=== PATIENT | male | born 1940 | race Caucasian/White ===

== ENCOUNTER 2018-10-10 10:17 | Outpatient (CLI) | payer OTHER, SELFPAY ==
[2018-10-10 15:47] LABS: Bacteria Negative HPF (Negative); C & S Indicated? No; Crystals Negative HPF (Negative); Epithelial Cells Negative HPF (Negative); Mucus Negative (Negative); Other Cells Negative (Negative); RBC 0-2 (0-2); WBC 0-2 HPF (0-5)
[2018-10-12 10:20] LABS: PSA, Screening 5.2 ng/ml (0-6.5)
== END 2018-10-10 10:37 ==
PROVIDERS: PCP Family Medicine; Visit Provider Nurse Practitioner Gerontology
DX: R31.9 Hematuria, unspecified (principal); N40.0 Benign prostatic hyperplasia without lower urinary tract symptoms; R97.20 Elevated prostate specific antigen [PSA]; Z12.5 Encounter for screening for malignant neoplasm of prostate
CPT/HCPCS: 36415; 84153; 81015

== ENCOUNTER → 2018-10-18 13:42 | Outpatient (BNVA) | payer OTHER, SELFPAY | PROVIDERS: PCP Family Medicine; Visit Provider Nurse Practitioner Gerontology | DX: N40.1 Benign prostatic hyperplasia with lower urinary tract symptoms (principal); R35.0 Frequency of micturition; R31.29 Other microscopic hematuria; R97.20 Elevated prostate specific antigen [PSA] | CPT/HCPCS: 99213 ==

== ENCOUNTER 2019-01-05 14:01 | Outpatient (CLI) | payer OTHER, SELFPAY ==
--- NOTE | 2019-01-05 14:00 | DI.RAD_ITS ---
SYMPTOMS/DIAGNOSIS: COUGH, SHORTNESS OF BREATH, SMOKER PA AND LATERAL CHEST: The heart is not enlarged. There appear to be changes of COPD but the lungs are clear. No pleural effusion seen. CONCLUSION: No evidence of acute disease.
[2019-01-05 14:51] LABS: Abs Immature Grans 0.01 k/cumm (0.0-0.09); Absolute Basophil Count 0.04 k/cumm (0.0-0.2); Absolute Eosinophil Count 0.05 k/cumm (0.0-0.7); Absolute Lymphocyte Count 1.36 k/cumm (1.2-3.4); Absolute Monocyte Count 0.55 k/cumm (0.11-0.7); Absolute Neutrophil Count 3.41 k/cumm (1.2-6.7); Basophils % 0.7; Eosinophils % 0.9; HCT 41.7 % (40.0-50.0); Immature Grans % 0.2; Lymphocytes % 25.1; Mean Corp. HGB Concentration 33.6 g/dL (32.0-36.0); Mean Corpuscular Hemoglobin 30.3 pg (27.0-33.0); Mean Corpuscular Volume 90.3 fL (80-95); Mean Platelet Volume 8.9 fL (8.0-11.0); Monocytes % 10.1; Platelet Count 223 x1000/uL (130-400); RBC 4.62 m/cumm (4.50-6.00); RBC Distribution Width 13.2 % (11.8-14.1); White Blood Cell Count 5.42 k/cumm (4.4-10.8)
[2019-01-05 16:29] LABS: Anion Gap 8.9 mmol/L (3-11); BUN 17 mg/dL (7-18); CO2 29.1 mmol/L (21.0-32.0); CREATININE 1.03 mg/dL (0.70-1.30); Calcium 9.1 mg/dL (8.5-10.1); Chloride 100 mmol/L (98-107); Glucose 100 mg/dL (70-100); Sodium 138 mmol/L (136-145)
== END 2019-01-05 14:21 ==
PROVIDERS: PCP Family Medicine; Visit Provider Family Medicine
DX: R05 Cough (principal); R06.02 Shortness of breath; F17.210 Nicotine dependence, cigarettes, uncomplicated; J44.9 Chronic obstructive pulmonary disease, unspecified
CPT/HCPCS: 36415; 80048; 71046; 85025

== ENCOUNTER 2019-01-12 08:31 | Outpatient (CLI) | payer OTHER, SELFPAY ==
[2019-01-12 10:46] LABS: TSH (W/Ref FT4) 0.97 uIU/mL (0.358-3.74)
[2019-01-16 07:05] LABS: Lyme Ab w Rflx to Lyme Confirm Negative
== END 2019-01-12 08:51 ==
PROVIDERS: PCP Family Medicine; Visit Provider Family Medicine
DX: R53.82 Chronic fatigue, unspecified (principal)
CPT/HCPCS: 36415; 84443; 86618

== ENCOUNTER 2019-01-25 02:01 | Outpatient (RCR) | payer OTHER, SELFPAY | END 2019-02-23 23:59 | disposition home or self-care (01) | LOC: PRC 02:01 | PROVIDERS: PCP Family Medicine; Visit Provider Family Medicine | DX: J44.9 Chronic obstructive pulmonary disease, unspecified (principal); Z51.89 Encounter for other specified aftercare | CPT/HCPCS: G0424 ==

== ENCOUNTER 2019-02-05 01:30 | Outpatient (CLI) | payer OTHER, SELFPAY ==
[2019-02-05 09:06] VITALS: PULSE 115; PULSE 120; PULSE 93; O2SAT 89; O2SAT 96
[2019-02-12 14:50] VITALS: PULSE 105; PULSE 106; PULSE 97; RESP 18; RESP 20; RESP 24; RESP 26; O2SAT 88; O2SAT 91; O2SAT 94
== END 2019-02-05 01:50 ==
PROVIDERS: PCP Family Medicine; Visit Provider Family Medicine
DX: R06.02 Shortness of breath (principal); J44.9 Chronic obstructive pulmonary disease, unspecified
CPT/HCPCS: 94618

== ENCOUNTER 2019-02-25 04:51 | Outpatient (RCR) | payer OTHER, SELFPAY | END 2019-03-25 23:59 | disposition home or self-care (01) | LOC: PRC 04:51 | PROVIDERS: PCP Family Medicine; Visit Provider Family Medicine | DX: J44.9 Chronic obstructive pulmonary disease, unspecified (principal); Z51.89 Encounter for other specified aftercare | CPT/HCPCS: G0424 ==

== ENCOUNTER 2019-03-26 09:23 | Outpatient (RCR) | payer OTHER, SELFPAY | END 2019-04-25 23:59 | disposition home or self-care (01) | LOC: PRC 09:23 | PROVIDERS: PCP Family Medicine; Visit Provider Family Medicine | DX: J44.9 Chronic obstructive pulmonary disease, unspecified (principal); Z51.89 Encounter for other specified aftercare | CPT/HCPCS: G0424 ==

== ENCOUNTER 2019-05-02 00:59 | Outpatient (CLI) | payer OTHER, SELFPAY ==
--- NOTE | 2019-05-02 15:20 | DI.CTLCSR_ITS ---
SYMPTOM/DIAGNOSIS: Z87.[address] LOW DOSE LUNG CANCER SCREENING: CHEST CT LOW DOSE LUNG CANCER SCREENING PROTOCOL 05/02 CT examination of the chest was performed utilizing low dose lung cancer screening protocol. Images obtained through the upper abdomen show unremarkable appearance of visualized portions of liver, pancreas, adrenals and kidneys. There are a few splenic calcifications which are nonspecific. Tiny calcified pulmonary nodule is seen posteriorly in the right lower lobe. No noncalcified pulmonary nodule is seen. No consolidation. A few apparent linear scars are noted. 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 No mediastinal or hilar adenopathy seen. Tracheobronchial tree appears intact. No pleural effusion or pleural base mass. CONCLUSION: Severe central lobular emphysema. Negative LDCT, Category 1. Continue annual screening with LDCT in 12 months. Lung-RAD Category: Lung RADS Category 1- Negative
== END 2019-05-02 01:19 ==
PROVIDERS: PCP Family Medicine; Visit Provider Internal Medicine
DX: Z12.2 Encounter for screening for malignant neoplasm of respiratory organs (principal); Z87.891 Personal history of nicotine dependence; R91.8 Other nonspecific abnormal finding of lung field; J43.9 Emphysema, unspecified
CPT/HCPCS: G0297

== ENCOUNTER 2019-05-25 13:00 | Outpatient (RCR) | payer OTHER, SELFPAY ==
--- NOTE | 2019-05-15 12:00 | PR3E_ITS ---
78 year old male who graduated Pulmonary Rehabilitation Phase 2 for COPD and transitioned to the maintenance phase, 3 days per week. PMH: COPD, GERD, BPH, chronic fatigue, orthopedic issues First day of exercise: 05/14/19: BP at rest 123/74, HR rest 78 bpm, O2 on 2L 96%. Patient completed 32 minutes of exercise: NuStep 8 minutes, UBE 8 minutes, treadmill 8 minutes, bike 8 minutes. O2 w/ exercise ranged 96-98%, HR w/ exercise ranged 94-107 bpm. YE RPB/RPE scores 12-15. BP with exercise 114/75. Post exercise BP 124/71, O2 95%. Tolerated exercise regimen without any adverse signs or symptoms. No concerns at this time, will continue to progress as tolerated.
== END 2019-05-26 23:59 | disposition home or self-care (01) ==
LOC: PRC 13:00
PROVIDERS: PCP Family Medicine; Visit Provider Family Medicine
DX: J44.9 Chronic obstructive pulmonary disease, unspecified (principal); Z51.89 Encounter for other specified aftercare
CPT/HCPCS: G0424

== ENCOUNTER 2019-06-08 08:55 | Emergency (ER) | payer OTHER, SELFPAY ==
--- NOTE | 2019-06-08 09:05 | ED.GENADUL_ITS ---
Discharge Plan Disposition Patient Disposition: HOME Condition: Stable Discharge Details Chief Complaint: Urinary Clinical Impression: Acute urinary retention Primary Care Provider: Mike Wing ED Provider: Aftab Spencer Home Meds and New Rx's Prescriptions: Continued Stiolto Respimat 2.5-2.5 mcg/actuation mist 2 puff IH DAILY RF: 0 (DME) Oxygen Tank See Rx Instructions .ROUTE .MEDSUPPLY Qty: 1 RF: 0 Prevnar 13 (PF) 0.5 mL syringe 0.5 ml IM ONCE Qty: 0.5 RF: 0 aspirin [Aspir-81] 81 MG tablet,delayed release (DR/EC) 81 mg PO DAILY Qty: 30 RF: 11 tamsulosin 0.4 mg capsule 0.8 mg PO DAILY AM Qty: 180 RF: 3 Symbicort 80-4.5 mcg/actuation HFA aerosol inhaler 2 puff Inhalation BID Qty: 120 RF: 5 albuterol sulfate [Proventil HFA] 90 mcg/actuation HFA aerosol inhaler 2 puff IH Q6H PRN (Reason: shortness of breath or wheezing) Qty: 8.5 RF: 11 Prilosec OTC 20 MG tablet,delayed release (DR/EC) 20 mg PO DAILY@0730 RF: 0 Discharge Instructions Instructions: Santacruz Catheter Placement and Care (ED), Urinary Leg Bag (GEN) Additional Instructions: follow up with urology for a voiding trial if you develop severe pain, fevers or persistent vomit return to the emergency department Medical Decision Making 78 yo male with hx of bph on flomax comes in with difficulty urinating for 2 days without fevers or burning. Denies n/v, abdominal pain or vomit. Has never required a santacruz in the past. Is walking without issues without back pain or saddle anesthesia so doubt cauda equina. Will have nursing perform bladder scan pt has over 600cc urine in bladder and can't urinate it out, nursing will place santacruz and he consents to this. Will check UA as well pt remains stable and feels better after santacruz placed. Draining clear urine and ua unremarkable. He is already established with urology so will have him f/u with them and return precautions given Differential Diagnosis Differential Diagnosis: bph, uti Medical Records Medical records reviewed: Yes I reviewed the patient's medical records. Lab Data Lab results reviewed: Yes I reviewed the patient's lab results. HPI General Mode of arrival: ambulatory . Date/Time Provider Initiated Documentation: 06/08/19 08:56 . Limitations to Documentation: no limitations . Information obtained by: patient . History of Present Illness 78 year old M presents to the emergency department with the chief complaint of difficulty urinating, Patient started experiencing this day(s) (2) and it has been constant. No relieving factors improve symptom(s), No exacerbating factors reported . Patient notes no other symptoms.. Related Data Home Medications Medication Instructions Recorded Confirmed Prilosec OTC 20 mg PO DAILY@0730 06/04/13 06/08/19 aspirin [Aspir-81] 81 mg PO DAILY #30 tab-cap 07/09/15 06/08/19 tamsulosin 0.4 mg capsule 0.8 mg PO DAILY AM #180 tab-cap 10/30/18 06/08/19 budesonide-formoterol HFA 80 2 puff INHALATION BID #120 inhaler 12/28/18 06/08/19 mcg-4.5 mcg/actuation aerosol inhaler albuterol sulfate 90 mcg/actuation 2 puff IH Q6H PRN #8.5 gm 05/02/19 06/08/19 aerosol inhaler Oxygen #1 each 05/16/19 06/08/19 pneumoc 13-sophia conj-dip cr(PF) 0.5 0.5 ml IM ONCE #0.5 ml 05/16/19 06/08/19 mL IM syringe tiotropium 2.5 mcg-olodaterol 2.5 2 puff IH DAILY 05/16/19 06/08/19 mcg/actuation mist for inhalation Previous Rx's Medication Instructions Recorded tamsulosin 0.4 mg capsule 0.8 mg PO DAILY AM #180 tab-cap 10/30/18 budesonide-formoterol HFA 80 2 puff INHALATION BID #120 inhaler 12/28/18 mcg-4.5 mcg/actuation aerosol inhaler albuterol sulfate 90 mcg/actuation 2 puff IH Q6H PRN #8.5 gm 05/02/19 aerosol inhaler pneumoc 13-sophia conj-dip cr(PF) 0.5 0.5 ml IM ONCE #0.5 ml 05/16/19 mL IM syringe Allergies Allergy/AdvReac Type Severity Reaction Status Date / Time No Known Allergies Allergy Unverified 06/08/19 09:11 Review of Systems Review of Systems ROS Unobtainable: All systems reviewed & are unremarkable except as noted in HPI and below Constitutional Constitutional: Denies chills, Denies fever(s) and Denies weakness ENT Ears, Nose, Mouth, and Throat: Denies change in voice Cardiovascular Cardiovascular: Denies chest pain and Denies dyspnea Respiratory Respiratory: Denies cough and Denies dyspnea Gastrointestinal Gastrointestinal: Denies abdominal pain, Denies nausea and Denies vomiting Genitourinary Genitourinary: Denies dysuria Neurologic Neurologic: Denies weakness [facility] Surgical History (Updated 02/14/19 @ 07:42 by Tej Winters) Appendectomy AGE 11 LEFT COLLARBONE AGE 18 Tonsillectomy AGE 13 Vasectomy AGE 44? Family History Mother No problems noted. Father Personal history of malignant neoplasm esophageal Sister No problems noted. Sister Alzheimer disease Sister Personal history of malignant neoplasm Lung Sister No problems noted. Brother Personal history of malignant neoplasm Esophageal Grandfather No problems noted. Grandfather Ruptured appendix Grandmother No problems noted. Grandmother No problems noted. Social History (Updated 11/17/18 @ 10:57 by Armida Guillen LPN) Smoking/Tobacco Use Status: Former Tobacco Use Alcohol Intake: never Drug use: Never Substance use type: does not use Do you feel safe at home: Yes Do you feel safe in your relationship?: Yes Exam Const General: no acute distress Orientation: alert HENMT Head: normal to inspection Ears: external ears normal General nose exam: external nose normal Mouth: moist mucous membranes Eyes General: appearance normal, both eyes and all related structures Neck Neck: normal visual inspection Resp Effort & Inspection: normal respiratory effort and able to speak in complete sentences Cardio Rate: regular rate Skin General skin exam: no rashes or lesions noted Neuro General: alert and oriented x3 Extrem General: normal to inspection Psych Mental Status: mental status grossly normal
[2019-06-08 09:08] VITALS: BP 157/94; PULSE 97; RESP 26; TEMP 36.8; O2SAT 98
[2019-06-08 09:40] LABS: Bilirubin Negative (Negative); Blood Moderate (Negative); Clarity Clear (Clear); Glucose Negative (Negative); Ketones Negative (Negative); Leukocyte Esterase Negative (Negative); Nitrite Negative (Negative); Urobilinogen 0.2 EU/dL (Up TO 0.2); pH 5.5 (5-8)
[2019-06-08 09:50] LABS: Bacteria Rare HPF (Negative); C & S Indicated? C&S Done As Ordered; Casts Negative LPF (Negative); Crystals Negative HPF (Negative); Epithelial Cells Negative HPF (Negative); Mucus Trace (Negative); WBC 0-2 HPF (0-5)
[2019-06-08 10:13] VITALS: BP 137/73; PULSE 97; O2SAT 94
--- NOTE | 2019-06-08 10:41 | NUR.NOTE ---
Referral faxed to [facility].Nursing Note:
== END 2019-06-08 10:15 | disposition home or self-care (01) ==
LOC: ER 10:23
PROVIDERS: Emergency Provider Emergency Medicine; PCP Family Medicine
DX: N40.1 Benign prostatic hyperplasia with lower urinary tract symptoms (principal); R33.8 Other retention of urine
CPT/HCPCS: 51702; 99283; 81003; 81015; 87086

== ENCOUNTER 2019-06-11 06:52 | Emergency (ER) | payer OTHER, SELFPAY ==
[2019-06-11 06:55] VITALS: BP 152/93; PULSE 87; RESP 20; TEMP 37; O2SAT 93
--- NOTE | 2019-06-11 07:06 | ED.GENADUL_ITS ---
Discharge Plan Disposition Patient Disposition: HOME Condition: Good Discharge Details Clinical Impression: Acute urinary retention Primary Care Provider: Mike Wing ED Provider: Pola Morgan Home Meds and New Rx's Prescriptions: No Action Stiolto Respimat 2.5-2.5 mcg/actuation mist 2 puff IH DAILY RF: 0 (DME) Oxygen Tank See Rx Instructions .ROUTE .MEDSUPPLY Qty: 1 RF: 0 Prevnar 13 (PF) 0.5 mL syringe 0.5 ml IM ONCE Qty: 0.5 RF: 0 aspirin [Aspir-81] 81 MG tablet,delayed release (DR/EC) 81 mg PO DAILY Qty: 30 RF: 11 tamsulosin 0.4 mg capsule 0.8 mg PO DAILY AM Qty: 180 RF: 3 Symbicort 80-4.5 mcg/actuation HFA aerosol inhaler 2 puff Inhalation BID Qty: 120 RF: 5 albuterol sulfate [Proventil HFA] 90 mcg/actuation HFA aerosol inhaler 2 puff IH Q6H PRN (Reason: shortness of breath or wheezing) Qty: 8.5 RF: 11 Prilosec OTC 20 MG tablet,delayed release (DR/EC) 20 mg PO DAILY@0730 RF: 0 Discharge Instructions Additional Instructions: Please go directly to Dr. Vail's office where he will reassess and manage your current Rodríguez situation. Medical Decision Making This is a pleasant 78-year-old male with a past medical history of hematuria with a Rodríguez catheter placed 3 days ago secondary to urinary retention . He presents today with inability to pass urine through his Rodríguez catheter. He noticed some clots last night and after that he was unable to pass anymore. Here in the ED he does have mildly distended bladder, we were able to push fluid through the catheter however we are unable to try any back. I suspect obstruction by clot or other abnormality. Since the patient has an appointment in an hour and a half we did contact Dr. Vail's office, and upon review of the case Dr. Vail recommends that the patient, directly to his office where they can replace the Rodríguez with a three-way and irrigate his bladder. Patient will be brought up by nursing staff in wheelchair for definitive management at Dr. Vail's office. I have extensively reviewed the treatment plan and discharge instructions with the patient. I have addressed all patient concerns at this time. The patient was made aware of what symptoms to monitor for that would warrant a return to the emergency department. Discussed the plan with the patient, they demonstrate verbal understanding and agreement with our assessment and plan at this time. HPI General Date/Time Provider Initiated Documentation: 06/11/19 06:57 . HPI Narrative: This is a pleasant 78-year-old male with a past medical history of hematuria who presents today for urinary retention. 3 days ago he had some mild hematuria and subsequent urinary retention with 700 cc of retained urine. At that time he was seen and assessed by Dr. Spencer, Rodríguez catheter was placed and he was doing very well. Unfortunately yesterday evening he noticed again some clots in his urine and after that his Rodríguez catheter would no longer drained. He has not been able to urinate since then. He does admit to some mild pain and pressure in the suprapubic region. He denies any fever chills nausea vomiting or diarrhea. No other complaints at this time. Of note he does have an appointment with Dr. Vail in an hour and a half from the current time. Related Data Home Medications Medication Instructions Recorded Confirmed Prilosec OTC 20 mg PO DAILY@0730 06/04/13 06/08/19 aspirin [Aspir-81] 81 mg PO DAILY #30 tab-cap 07/09/15 06/08/19 tamsulosin 0.4 mg capsule 0.8 mg PO DAILY AM #180 tab-cap 10/30/18 06/08/19 budesonide-formoterol HFA 80 2 puff INHALATION BID #120 inhaler 12/28/18 06/08/19 mcg-4.5 mcg/actuation aerosol inhaler albuterol sulfate 90 mcg/actuation 2 puff IH Q6H PRN #8.5 gm 05/02/19 06/08/19 aerosol inhaler Oxygen #1 each 05/16/19 06/08/19 pneumoc 13-sophia conj-dip cr(PF) 0.5 0.5 ml IM ONCE #0.5 ml 05/16/19 06/08/19 mL IM syringe tiotropium 2.5 mcg-olodaterol 2.5 2 puff IH DAILY 05/16/19 06/08/19 mcg/actuation mist for inhalation Previous Rx's Medication Instructions Recorded tamsulosin 0.4 mg capsule 0.8 mg PO DAILY AM #180 tab-cap 10/30/18 budesonide-formoterol HFA 80 2 puff INHALATION BID #120 inhaler 12/28/18 mcg-4.5 mcg/actuation aerosol inhaler albuterol sulfate 90 mcg/actuation 2 puff IH Q6H PRN #8.5 gm 05/02/19 aerosol inhaler pneumoc 13-sophia conj-dip cr(PF) 0.5 0.5 ml IM ONCE #0.5 ml 05/16/19 mL IM syringe Allergies Allergy/AdvReac Type Severity Reaction Status Date / Time No Known Allergies Allergy Unverified 06/08/19 09:11 General OTILIO: 3 Review of Systems Review of Systems ROS Unobtainable: All systems reviewed & are unremarkable except as noted in HPI and below PFSH Surgical History (Updated 02/14/19 @ 07:42 by Tej Winters) Appendectomy AGE 11 LEFT COLLARBONE AGE 18 Tonsillectomy AGE 13 Vasectomy AGE 44? Family History Mother No problems noted. Father Personal history of malignant neoplasm esophageal Sister No problems noted. Sister Alzheimer disease Sister Personal history of malignant neoplasm Lung Sister No problems noted. Brother Personal history of malignant neoplasm Esophageal Grandfather No problems noted. Grandfather Ruptured appendix Grandmother No problems noted. Grandmother No problems noted. Social History (Updated 11/17/18 @ 10:57 by Armida Guillen LPN) Smoking/Tobacco Use Status: Former Tobacco Use Alcohol Intake: never Drug use: Never Substance use type: does not use Do you feel safe at home: Yes Do you feel safe in your relationship?: Yes Exam Narrative Exam Narrative: 1.Const: Well-nourished, Well-developed, appearing stated age 2.Eyes: PERRL, no conjunctival injection, and symmetrical lids. 3.ENT: Atraumatic external nose and ears. Moist MM. Neck: Symmetric, trachea midline, No thyromegaly. 4.CVS: +S1/S2, No murmurs or gallops. Peripheral pulses 2+ and equal in all extremities. Brisk capillary refill in all extremities. 5.RESP: Unlabored respiratory effort. Clear to auscultation bilaterally. No wheezes rales or rhonchi 6.GI: Soft, Nontender/Nondistended, No hepatosplenomegaly. No guarding or rebound. Normal male genitalia, Rodríguez catheter in place. Nontender testicles and penis. 7.MSK: Normocephalic/Atraumatic, Extremities w/o deformity or ttp No cyanosis or clubbing, Normal movement of all extremities 8.Skin: Warm, Dry. No rashes or lesions. 9.Neuro: rehabilitation attendant II-XII grossly intact. Sensation grossly intact, no focal neurologic deficits. 10.Psych: (AAO) x3. Appropriate mood and affect
== END 2019-06-11 07:14 | disposition home or self-care (01) ==
LOC: ER 07:11
PROVIDERS: Emergency Provider Student in an Organized Health Care Education/Training Program; PCP Family Medicine
DX: N40.1 Benign prostatic hyperplasia with lower urinary tract symptoms (principal); R33.8 Other retention of urine; T83.011A Breakdown (mechanical) of indwelling urethral catheter, initial encounter; Z46.6 Encounter for fitting and adjustment of urinary device; R31.0 Gross hematuria
CPT/HCPCS: 51702; 51798; 99212; 99213; 99282

== ENCOUNTER → 2019-06-12 10:17 | Outpatient (BNVA) | payer OTHER, SELFPAY | PROVIDERS: PCP Family Medicine; Visit Provider Nurse Practitioner Gerontology | DX: R33.9 Retention of urine, unspecified (principal); Z46.6 Encounter for fitting and adjustment of urinary device | CPT/HCPCS: 99213 ==

== ENCOUNTER → 2019-06-14 07:32 | Outpatient (BNVA) | payer OTHER, SELFPAY | PROVIDERS: PCP Family Medicine; Visit Provider Urology | DX: R33.9 Retention of urine, unspecified (principal) | CPT/HCPCS: 51798; 99211; 99213 ==

== ENCOUNTER 2019-06-18 14:00 | Outpatient (CLI) | payer OTHER, SELFPAY | END 2019-06-18 14:20 | PROVIDERS: PCP Family Medicine; Visit Provider Nurse Practitioner Gerontology | DX: R33.9 Retention of urine, unspecified (principal) | CPT/HCPCS: 51798; 99212 ==

== ENCOUNTER 2019-06-20 13:00 | Outpatient (RCR) | payer SELFPAY | END 2019-06-25 23:59 | disposition home or self-care (01) | LOC: PRC 13:00 | PROVIDERS: PCP Family Medicine; Visit Provider Family Medicine | DX: J44.9 Chronic obstructive pulmonary disease, unspecified (principal); Z51.89 Encounter for other specified aftercare | CPT/HCPCS: 99212; S9472 ==

== ENCOUNTER 2019-06-26 06:26 | Outpatient (RCR) | payer SELFPAY | END 2019-07-26 23:59 | disposition home or self-care (01) | LOC: PRC 06:26 | PROVIDERS: PCP Family Medicine; Visit Provider Family Medicine | DX: J44.9 Chronic obstructive pulmonary disease, unspecified (principal); Z51.89 Encounter for other specified aftercare | CPT/HCPCS: S9472 ==

== ENCOUNTER 2019-07-25 13:30 | Outpatient (RCR) | payer SELFPAY | END 2019-07-26 23:59 | disposition home or self-care (01) | LOC: CR 13:30 | PROVIDERS: PCP Family Medicine; Visit Provider Family Medicine | DX: Z51.89 Encounter for other specified aftercare (principal) ==

== ENCOUNTER 2019-08-22 14:31 | Outpatient (RCR) | payer SELFPAY | END 2019-08-25 23:59 | disposition home or self-care (01) | LOC: CR 14:31 | PROVIDERS: PCP Family Medicine; Visit Provider Family Medicine | DX: Z51.89 Encounter for other specified aftercare (principal) | CPT/HCPCS: S9472 ==

== ENCOUNTER 2019-09-24 14:43 | Outpatient (RCR) | payer SELFPAY | END 2019-09-25 23:59 | disposition home or self-care (01) | LOC: CR 14:43 | PROVIDERS: PCP Family Medicine; Visit Provider Family Medicine | DX: Z51.89 Encounter for other specified aftercare (principal) | CPT/HCPCS: S9472 ==

== ENCOUNTER 2019-10-05 02:40 | Outpatient (CLI) | payer OTHER, SELFPAY ==
[2019-10-08 10:24] LABS: PSA, Screening 7.4 ng/mL (0.0-6.5)
== END 2019-10-05 03:00 ==
PROVIDERS: PCP Family Medicine; Visit Provider Nurse Practitioner Gerontology
DX: R97.20 Elevated prostate specific antigen [PSA] (principal)
CPT/HCPCS: 36415; 84153

== ENCOUNTER 2019-10-26 12:59 | Outpatient (RCR) | payer SELFPAY | END 2019-10-26 23:59 | disposition home or self-care (01) | LOC: CR 12:59 | PROVIDERS: PCP Family Medicine; Visit Provider Family Medicine | DX: Z51.89 Encounter for other specified aftercare (principal) | CPT/HCPCS: S9472 ==

== ENCOUNTER 2019-11-23 13:36 | Outpatient (RCR) | payer SELFPAY | END 2019-11-24 23:59 | disposition home or self-care (01) | LOC: CR 13:36 | PROVIDERS: PCP Family Medicine; Visit Provider Family Medicine | DX: Z51.89 Encounter for other specified aftercare (principal) | CPT/HCPCS: S9472 ==

== ENCOUNTER 2019-11-28 10:35 | Outpatient (CLI) | payer OTHER, SELFPAY ==
[2019-11-28 13:21] LABS: Magnesium 1.9 mg/dL (1.8-2.4); Vitamin B12 399 pg/mL (193-986)
[2019-11-29 11:36] LABS: PSA, Screening 7.5 ng/mL (0.0-6.5)
[2019-11-29 14:20] LABS: Free PSA/PSA Ratio 0.27 ratio
== END 2019-11-28 10:55 ==
PROVIDERS: Nurse Practitioner Gerontology; PCP Family Medicine; Visit Provider Family Medicine
DX: K21.9 Gastro-esophageal reflux disease without esophagitis (principal); R97.20 Elevated prostate specific antigen [PSA]; Z12.5 Encounter for screening for malignant neoplasm of prostate
CPT/HCPCS: 84153; 82607; 83735; 84154

== ENCOUNTER 2019-12-03 13:00 | Outpatient (RCR) | payer SELFPAY | END 2019-12-25 23:59 | disposition home or self-care (01) | LOC: CR 13:00 | PROVIDERS: PCP Family Medicine; Visit Provider Family Medicine | DX: Z51.89 Encounter for other specified aftercare (principal) | CPT/HCPCS: S9472 ==

== ENCOUNTER 2020-09-30 03:04 | Outpatient (CLI) | payer MEDICARE, SELFPAY ==
[2020-09-30 17:52] LABS: PSA, Diagnostic 8.6 ng/mL (0.0-6.5)
== END 2020-09-30 03:24 ==
PROVIDERS: PCP Family Medicine; Visit Provider Nurse Practitioner Gerontology
DX: R97.20 Elevated prostate specific antigen [PSA] (principal); R33.9 Retention of urine, unspecified
CPT/HCPCS: 36415; 84153

== ENCOUNTER → 2020-10-06 11:24 | Outpatient (BNVA) | payer MEDICARE, SELFPAY | PROVIDERS: PCP Family Medicine; Referring Provider Family Medicine; Visit Provider Nurse Practitioner Gerontology | DX: N40.0 Benign prostatic hyperplasia without lower urinary tract symptoms (principal); Z87.448 Personal history of other diseases of urinary system; R97.20 Elevated prostate specific antigen [PSA] | CPT/HCPCS: 99213 ==

== ENCOUNTER 2021-10-06 02:26 | Outpatient (CLI) | payer MEDICARE, SELFPAY ==
[2021-10-06 22:01] LABS: PSA, Diagnostic 9.1 ng/mL (0.0-6.5)
== END 2021-10-06 02:27 | disposition home or self-care (01) ==
LOC: LBO 02:26
PROVIDERS: PCP Family Medicine; Visit Provider Nurse Practitioner Gerontology
DX: R97.20 Elevated prostate specific antigen [PSA] (principal)
CPT/HCPCS: 36415; 84153

== ENCOUNTER → 2021-10-08 10:48 | Outpatient (BNVA) | payer MEDICARE, SELFPAY | PROVIDERS: PCP Family Medicine; Referring Provider Family Medicine; Visit Provider Nurse Practitioner Gerontology | DX: N40.0 Benign prostatic hyperplasia without lower urinary tract symptoms (principal); R31.29 Other microscopic hematuria; R97.20 Elevated prostate specific antigen [PSA] | CPT/HCPCS: 99214 ==

== ENCOUNTER 2022-03-30 17:04 | Outpatient (RCR) | payer MEDICARE, SELFPAY | END 2022-04-02 23:59 | disposition home or self-care (01) | LOC: PRC 17:04 | PROVIDERS: PCP Family Medicine; Visit Provider Student in an Organized Health Care Education/Training Program | DX: J44.9 Chronic obstructive pulmonary disease, unspecified (principal) | CPT/HCPCS: G0424 ==

== ENCOUNTER 2022-03-31 09:35 | Inpatient (IN) | payer MEDICARE, SELFPAY ==
[2022-03-31] VITALS (180 sets, daily range): BP systolic 74–158; BP diastolic 45–125; PULSE 49–182; RESP 11–29; TEMP 36.8–37.2; O2SAT 93–100
--- NOTE | 2022-03-31 09:30 | RT.EKG_ITS ---
APPROVED REPORT Exam: Resting ECG Reason for Exam: epigastric pain Patient Location: E HR:115 bpm ECG Measurements Heart Rate 115 AXIS W[place] [id number] P [id number] QRSd 80 QRS -5 QT 351 T 106 QTc 485 Conclusion Atrial fibrillation...V-rate 77-144, irreg A-activity Probable posterior infarct, recent...prom R, STd, V1-3 or Q, Tc, V7-9 Abnrm T, consider ischemia, anterolateral lds...T <-0.20mV, I aVL V2-V6 atrial fibrillation, st segment depression V2-V5
--- NOTE | 2022-03-31 09:30 | DI.RAD_ITS ---
Exam(s) XR PORTABLE CHEST AP EXAM: XR PORTABLE CHEST AP CLINICAL HISTORY: afib, chest epigastric pain TECHNIQUE: 2D digital imaging was performed. COMPARISON: CT CT CHEST LUNG CANCER SCREEN from 05/02/2019 FINDINGS: LUNGS: Fibrotic changes, otherwise clear. No pleural abnormality seen. HEART: Normal. AORTA: Normal diameter. Calcification.. BONES: Unremarkable for age. Soft tissues: Unremarkable. IMPRESSION: No acute findings. DATA REPOSITORY: RADIATION DOSE DELIVERED:
--- NOTE | 2022-03-31 09:41 | W.ED.GENAD ---
Discharge Plan Disposition Patient Disposition: [facility] INPATIENT Condition: Fair Discharge Details Chief Complaint: Palpitatns Clinical Impression: Non-ST elevation IA (NSTEMI), Atrial fibrillation with rapid ventricular response Primary Care Provider: Mike Wing ED Provider: Wai Phillip Home Meds and New Rx's Prescriptions: No Action (DME) Oxygen Tank See Rx Instructions .ROUTE .MEDSUPPLY Qty: 1 Rx Instructions: As directed aspirin [Aspir-81] 81 MG tablet,delayed release (DR/EC) 81 mg PO DAILY Qty: 30 tamsulosin 0.4 mg capsule 0.8 mg PO DAILY AM Qty: 180 3RF ascorbate calcium (vitamin C) 500 mg tablet 500 mg PO DAILY zinc 50 mg tablet 50 mg PO DAILY cholecalciferol (vitamin D3) 50 mcg (2,000 unit) tablet 50 mcg PO DAILY Trelegy Ellipta 100-62.5-25 mcg blister with device 1 inh inhalation DAILY Qty: 60 5RF albuterol sulfate 90 mcg/actuation HFA aerosol inhaler See Rx Instructions .ROUTE .COMPLEX Qty: 8.5 0RF Dose Instruction: INHALE 2 PUFFS BY MOUTH EVERY 4 HOURS NEEDED FOR SHORTNESS OF BREATH OR WHEEZING Rx Instructions: INHALE 2 PUFFS BY MOUTH EVERY 4 HOURS NEEDED FOR SHORTNESS OF BREATH OR WHEEZING omeprazole magnesium [Prilosec OTC] 20 MG tablet,delayed release (DR/EC) 20 mg PO DAILY@0730 Medical Decision Making 81-year-old male history of COPD presents with rapid heart rate chest discomfort epigastric discomfort and fatigue, endorses intermittent irregular heart rate for some time, currently being evaluated by his primary care doctor with a heart monitor before a cataract procedure this coming Tuesday. Maintain blood pressure normal mental status no respiratory distress no peripheral edema. A. fib RVR on monitor and EKG. Rate related ST segment depressions. Consider ACS versus symptomatic A. fib versus electrolyte abnormality versus less likely PE versus less likely aortic pathology versus less likely pneumonia or pneumothorax. Screening labs imaging rate control disposition pending results and repeat examination 11: 15 patient was comfortably resting comfortably no acute distress, persistent tachycardia to the 110s-130s, with soft blood pressure systolic pressures in the 80s. Will provide further fluid bolus, if unresponsive to this consider amiodarone versus electrical cardioversion. Patient will need admission for close observation of cardiopulmonary status and evaluation by cardiology. Patient took aspirin at home and received 3 baby aspirin from EMS. 11: 49 patient resting comfortably asymptomatic at this time and no chest pain. Persistently tachycardic to the 120s to 130s. Intermittently soft blood pressure. Will administer amiodarone given soft blood pressure. Patient adamant that he does not want to stay in the hospital. I counseled him regarding the risks of leaving which include illness debility and . Will reevaluate patient's desires after amiodarone. Will encourage admission for further rate control and cardiac evaluation. 13: 32 patient is converted to sinus rhythm, sinus bradycardia after amiodarone bolus. Persistent soft blood pressure 90 systolic. Patient does have some tachypnea/shortness of breath however is alert oriented and ambulatory with assistance. Uptrending troponin, concerned the patient may have had silent infarction last night leading to current symptomatology today, work-up consistent with NSTEMI. Will initiate heparin protocol. Have reached out to both [facility] and [facility] cardiology services who are not excepting transfers at this time. Will admit patient to hospitalist service here 14: 26 patient to be admitted to ICU, awaiting callback from [facility] to coordinate possible transfer for tomorrow. We will continue with heparin have loaded with Plavix, will order echocardiogram. HPI General Date/Time Provider Initiated Documentation: 03/31/22 09:39. HPI Narrative: 81-year-old male history of COPD presents with epigastric and chest discomfort this morning, as well as fatigue, fast heart rate irregular in the field as high as 150s, given Lopressor in route. Related Data Home Medications Medication Instructions Recorded Confirmed omeprazole magnesium 20 mg 20 mg PO DAILY@0730 06/04/13 03/31/22 tablet,delayed release (Prilosec OTC) aspirin 81 mg tablet,delayed 81 mg PO DAILY #30 tab-caps 07/09/15 03/31/22 release (Aspir-) Oxygen #1 ea 05/16/19 03/31/22 tamsulosin 0.4 mg capsule 0.8 mg PO DAILY AM #180 tab-caps 12/21/21 03/31/22 ascorbate calcium (vitamin C) 500 500 mg PO DAILY 01/13/22 03/31/22 mg tablet cholecalciferol (vitamin D3) 50 50 mcg PO DAILY 01/13/22 03/31/22 mcg (2,000 unit) tablet zinc 50 mg tablet 50 mg PO DAILY 01/13/22 03/31/22 fluticasone fur. 100 mcg-umeclid 1 inh inhalation DAILY #60 ea 02/08/22 03/31/22 62.5 mcg-vilant 25 mcg inhalat.powder (Trelegy Ellipta) albuterol sulfate 90 mcg/actuation See Rx Instructions .Route 03/15/22 03/31/22 aerosol inhaler .COMPLEX #8.5 grams Previous Rx's Medication Instructions Recorded tamsulosin 0.4 mg capsule 0.8 mg PO DAILY AM #180 tab-caps 12/21/21 fluticasone fur. 100 mcg-umeclid 1 inh inhalation DAILY #60 ea 02/08/22 62.5 mcg-vilant 25 mcg inhalat.powder (Trelegy Ellipta) albuterol sulfate 90 mcg/actuation See Rx Instructions .Route 03/15/22 aerosol inhaler .COMPLEX #8.5 grams Allergies Allergy/AdvReac Type Severity Reaction Status Date / Time Influenza Virus Vaccines AdvReac Severe FLU LIKE Verified 03/31/22 09:43 SXS WHICH LAST FOR WEEKS General Stated Complaint: Palpitatns OTILIO: 2 Review of Systems Narrative: Review of Systems Constitutional: negative Eyes: negative ENT: negative Cardiovascular: chest pain Respiratory: negative Gastrointestinal: negative : negative Musculoskeletal: negative Skin: negative Neurologic: negative Psych: negative PFSH All Active Problems (Updated 03/31/22 @ 14:27 by Wai Phillip MD) Non-ST elevation IA (NSTEMI) (Acute) Atrial fibrillation with rapid ventricular response (Acute) Pre-syncope (Acute) Respiratory failure with hypoxia (Acute) Pulmonary hypertension (Acute) Insomnia (Acute) Dermatitis (Acute) Cervical disc disease (Acute) Elevated PSA (Acute) Dizziness (Acute) Peripheral edema (Acute) Urinary retention (Acute) Advanced care planning/counseling discussion (Acute) Shortness of breath (Chronic) History of appendectomy (Acute) History of orthopedic surgery (Acute) Status post tonsillectomy (Acute) Status post vasectomy (Acute) Chronic obstructive pulmonary disease (Chronic) BPH (benign prostatic hyperplasia) (Acute) Depressive disorder (Acute) Gastroesophageal reflux disease (Acute) Hearing loss (Acute) History of tobacco use (Acute) Hyperlipidemia (Acute) Pain, radicular, lumbar (Acute 02/18/15) MRI 02/18/15; 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 Psoriasis (Acute) Sexual function problem (Acute) Shoulder pain (Acute) right Syncope (Acute) Surgical History (Updated 02/14/19 @ 07:42 by Tej Winters) Appendectomy AGE 11 LEFT COLLARBONE AGE 18 Tonsillectomy AGE 13 Vasectomy AGE 44? Family History Mother No problems noted. Father Personal history of malignant neoplasm esophageal Sister No problems noted. Sister Alzheimer disease Sister Personal history of malignant neoplasm Lung Sister No problems noted. Brother Personal history of malignant neoplasm Esophageal Grandfather No problems noted. Grandfather Ruptured appendix Grandmother No problems noted. Grandmother No problems noted. Social History (Updated 11/17/18 @ 10:57 by Armida Guillen LPN) Smoking/Tobacco Use Status: Former Tobacco Use Smoking risk assessment performed?: Yes Alcohol Intake: never Drug use: Never Substance use type: does not use Do you feel safe at home: Yes Do you feel safe in your relationship?: Yes Exam Narrative Exam Narrative: Physical Examination General: alert, awake, cooperative, resting comfortably, no acute distress HEENT: normocephalic, atraumatic; PERRL, EOM intact, conjunctiva normal; no nasal discharge; moist mucous membranes, oral and pharyngeal mucosa normal, tolerating secretions Neck: supple, trachea midline; full ROM Chest: normal to inspection Respiratory: normal respiratory effort, speaking in full sentences, clear to auscultation, no wheezing, rales or rhonchi Cardiac: Irregularly irregular tachycardia GI: abdomen soft, non-tender, non-distended; no palpable mass or hepatosplenomegaly Skin: no lesions, rashes or trauma appreciated Neuro: AAOx3, normal speech, moving all extremities Extremities: No peripheral edema warm well perfused extremities Psych: Appropriate mood and affect Course Vital Signs Vital signs: Vital Signs Temperature 36.8 C 03/31/22 09:35 Pulse 134 H 03/31/22 09:35 Respiratory Rate 17 03/31/22 09:35 Blood Pressure 118/81 03/31/22 09:35 Temperature 36.8 C 03/31/22 09:35 Temperature Source Skin 03/31/22 09:35 Pulse 134 H 03/31/22 09:35 Respiratory Rate 17 03/31/22 09:35 Blood Pressure 118/81 03/31/22 09:35 Blood Pressure Position Supine 03/31/22 09:35 Oxygen Delivery Method Room Air 03/31/22 09:35 Oxygen Flow Rate 0 03/31/22 09:35 Pain Level 2 03/31/22 09:35
[2022-03-31] MEDS: Normal Saline 1,000 ML 1000 ML IV ×2 (09:51→10:51)
[2022-03-31 09:54] LABS: Abs Immature Grans 0.02 10^3/uL (0.0-0.06); Absolute Basophil Count 0.05 10^3/uL (0.0-0.2); Absolute Eosinophil Count 0.08 10^3/uL (0.0-0.7); Absolute Lymphocyte Count 1.11 10^3/uL (1.2-3.4); Absolute Monocyte Count 0.38 10^3/uL (0.1-0.8); Absolute Neutrophil Count 5.17 10^3/uL (1.2-6.7); Basophils % 0.7; Eosinophils % 1.2; HCT 35.2 % (40.0-50.0); HGB 11.3 g/dL (13.5-17.5); Immature Grans % 0.3; Lymphocytes % 16.3; MCHC 32.1 % (32.0-36.0); MCV 91 fL (80-95); MPV 8.7 fL (8.0-11.0); Monocytes % 5.6; Neutrophils % 75.9; Platelet Count 246 10^3/uL (130-400); RBC 3.89 10^6/uL (4.36-5.78); RDW 12.4 % (11.8-14.1); RDW-SD 40.6 fL; WBC 6.81 10^3/uL (4.4-10.8)
[2022-03-31 10:11] LABS: INR 1.1 (0.9-1.1); PTT Activated 27.5 sec (21.0-27.5)
[2022-03-31 10:22] LABS: ALT 13 U/L (16-63); AST 10 U/L (15-37); Albumin 3.2 g/dL (3.4-5.0); Alkaline Phosphatase 70 U/L (46-116); Anion Gap 6.4 mmol/L (3-11); BUN 15 mg/dL (7-18); Bilirubin, Total 0.3 mg/dL (0.2-1.0); CO2 27.6 mmol/L (21.0-32.0); Calcium 8.7 mg/dL (8.5-10.1); Chloride 103 mmol/L (98-107); Glucose 110 mg/dL (74-106); Magnesium 1.8 mg/dL (1.8-2.4); NT-proBNP 129 pg/mL (<300); Potassium 3.8 mmol/L (3.5-5.1); Sodium 137 mmol/L (136-145); TSH (W/Ref FT4) 1.22 uIU/mL (0.36-3.74); Total Protein 6.3 g/dL (6.4-8.2)
[2022-03-31 10:23] LABS: Troponin I 74 ng/L (<or=60)
[2022-03-31 11:13] LABS: Source Nasal/Nares
[2022-03-31 12:14] LABS: COVID-19 PCR Negative (Negative)
--- NOTE | 2022-03-31 13:15 | RT.EKG_ITS ---
APPROVED REPORT Exam: Resting ECG Reason for Exam: post meds, cadioversion Patient Location: E HR:60 bpm ECG Measurements Heart Rate 60 AXIS NJ 176 P 74 QRSd 80 QRS -5 QT 423 T 33 QTc 399 Conclusion Sinus bradycardia...rate< 60 Atrial premature complexes...SV complexes w/ short R-R intvls sinus bradycardia, normal axis, normal intervals, non ischemic, PAC
[2022-03-31 13:24] LABS: Troponin I 1304 ng/L (<or=60)
--- NOTE | 2022-03-31 14:00 | RT.EKG_ITS ---
APPROVED REPORT Exam: Resting ECG Reason for Exam: need right sided ekg Patient Location: E HR:63 bpm ECG Measurements Heart Rate [address] 164 P 73 QRSd 82 QRS 3 QT 426 T 57 QTc 437 Conclusion Sinus rhythm...normal P axis, V-rate 60- 99 Low voltage, precordial leads...precordial leads <1.0mV Right ventricular hypertrophy...prominent R or R' w/ RAD or JEREMY sinus rhythm, normal intervals, normal axis, flat t waves laterally
[2022-03-31] MEDS: Clopidogrel 300 MG TAB 600 MG PO (14:58)
--- NOTE | 2022-03-31 16:13 | INITIAL_ITS ---
- If Service Date Differs Date of service: 03/31/22 Time of Service: 16:13 Care Management Initial Assess REASON FOR HOSPITALIZATION:: NSTEMI, rapid afib. PAST MEDICAL HISTORY/PAST SURGICAL HISTORY:: All Active Problems: Non-ST elevation [place] (NSTEMI) (Acute), Atrial fibrillation with rapid ventricular response (Acute), Pre-syncope (Acute),. Respiratory failure with hypoxia (Acute), Pulmonary hypertension (Acute),. Insomnia (Acute), Dermatitis (Acute), Cervical disc disease (Acute),. Elevated PSA (Acute), Dizziness (Acute), Peripheral edema (Acute), Urinary retention (Acute), Advanced care planning/counseling discussion (Acute),. 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 Surgical History: Appendectomy - AGE 11, LEFT COLLARBONE - AGE 18,. Tonsillectomy - AGE 13, and Vasectomy - AGE 44? PREVIOUS FUNCTIONAL STATUS/SOCIAL/FAMILY SUPPORTS:: Satya resides in [place] with his annual giving manager, Yanet. 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 Gómez has three adult children, two of whom live locally. His son, Milind, lives in Gómez's home in an upstairs [id number] apartment and Liu, the son he reports being closest to, resides near [facility]. Gómez is estranged from Kari, his only daughter. 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 Gómez names Juan Manuel Holt who is a friend but more like a grandson, Liu, and Milind as his supports. Gómez still drives and is independent with his ADLs at baseline. CURRENT FUNCTIONAL STATUS:: Gómez is lying in bed when CM comes to meet with him. His annual giving manager, Yaent, is present in the room. Gómez is pleasant and easily engages in conversation. He shares that the plan is for him to transfer to [facility] [place] as soon as a bed becomes available. ADVANCE DIRECTIVES:: On file; close friend Juan Manuel Lancaster is appointed as Health Care Agent; son Liu Trujillo is Alternate Agent. A COLST form is also on file. Has patient been provided with info about the portal/API?: Yes Did the patient sign up for the portal?: Yes (Previously enrolled.) CODE STATUS:: DNR INSURANCE COVERAGE / FINANCIAL ISSUES:: [place] [employer] Advantage Plan. CURRENT HOME/COMMUNITY SERVICES/EQUIPMENT:: No home/community services. Gómez is on 3L of O2 at baseline. He has a stationary and a portable concentrator at home. [employer] provides his oxygen. PRIMARY CARE PHYSICIAN:: Mike Wing MD ([facility]). POTENTIAL DISCHARGE NEEDS:: Follow up appointments with his PCP and cardiology. PATIENT/FAMILY EDUCATION NEEDS:: Reivew of discharge instructions re medications and limitations; discuss Ask Me Three and self management. TRANSPORTATION:: Gómez will be transported to [facility] [place] [place] via EMS when a bed becomes available. PLAN:: Dr. Dukes has conditionally accepted Gómez to cardiology service at [facility] [place], pending bed availability. Gómez will be transferred to [facility] [place] [place] via EMS when a bed becomes available. CM will continue to follow.
[2022-03-31 16:59] LABS: Troponin I 10079 ng/L (<or=60)
--- NOTE | 2022-03-31 17:15 | RT.EKG_ITS ---
APPROVED REPORT Exam: Resting ECG Reason for Exam: acute mi Patient Location: I HR:66 bpm ECG Measurements Heart Rate 66 AXIS FL 163 P 43 QRSd 84 QRS 1 QT 397 T 46 QTc 416 Conclusion Sinus rhythm...normal P axis, V-rate 50- 99 Atrial premature complexes...SV complexes w/ short R-R intvls Abnormal R-wave progression, early transition...QRS area>0 in V2
--- NOTE | 2022-03-31 17:17 | HPE_ITS ---
Date of service: 03/31/22 Time of Service: 17:18 Assessment and Plan Assessment and plan (1) Non-ST elevation DC (NSTEMI): Status: Acute Assessment and plan: NSTEMI in the setting of new onset atrial fibrillation with rapid ventricular response. It is presumed that he has underlying ischemic heart disease given the significant rise in his troponins to 10,000. It is reassuring that his echocardiogram reportedly shows normal LV function with no wall motion abnormalities and RV function also appears normal. Per my discussion with Dr. Villanueva, cardiology [place] [facility] will be for symptomatic control tonight with nitrates and narcotics. If failure to control his angina or he has new ST-T changes then [facility] [place] should be notified to discuss management and potential transfer tonight to the poultry hatchery laborer. Patient has been accepted for transfer tomorrow to Dr. Toño Dukes service pending bed availability. Otherwise, continue heparin, plavix, ASA, judicious use of nitroglycerin drip (I would hold if he is pain free or if his BP drops below 100 mm). Begin statin tonight. I would consider BB but w/ his hypotensive response to lopressor given earlier this morning by EMS, I would use caution. He is back in sinus rhythm in the 70's now. Critical care time spent interviewing and examining the patient, reviewing studies, discussing case with patient's nurse and consulting physicians was 60 minutes (2) Atrial fibrillation with rapid ventricular response: Status: Acute Assessment and plan: resolved after amiodarone bolus. Not currently on amiodarone drip. monitor for n ow. If recurrent then I would re-bolus and begin drip and consider BB. (3) Chronic obstructive pulmonary disease: Status: Chronic Assessment and plan: We do not have his Trelegy, therefore I will order Symbicort and Spiriva. (4) Gastroesophageal reflux disease: Status: Acute Assessment and plan: will use pepcis rather than PPI as patient is now on plavix (5) Hyperlipidemia: Status: Acute Assessment and plan: not on a statin at home but will put on atorvastatin tonight. (6) Discharge planning issues: Status: Acute Assessment and plan: patient has been accepted to service of Dr. Toño Dukes, cardiology at [facility] [place] pending bed availability. If patient worsens overnight then [facility] [place] should be notified for transfer tonight. Patient is full code per his wishes. History of Present Illness History of Present Illness Chief Complaint: Chest pain Narrative: 81-year-old former smoker with a history of COPD whose dependent on oxygen 3 L/min per nasal cannula and felt fine when he went to bed last night was awakened around 4 AM with a bad dream and felt cold chills but no rigors. At that time he had no shortness of breath no chest discomfort. He went back to bed after going to the bathroom and awoke again around 5 AM he just did not feel quite right again voided and felt chilled and went back to bed with his significant other only to awaken around 7 AM at which time he was having some epigastric discomfort and feeling like he could not quite catch his breath. He says he has had similar episodes of dyspnea due to his COPD and usually resolves with use of his rescue inhaler albuterol. He used his albuterol but did not get immediate relief however after about 1/2-hour so the breathlessness gradually resolved only to be followed by an aching feeling in his jaw that began around 7:30 AM. He recalls reading somewhere that the symptoms are similar to heart problems and recalls being told to take an aspirin under his tongue. Instead of taking his usual 81 mg aspirin he took 325 mg aspirin put under his tongue. He uses pulse oximeter to check to his oxygen level and noticed that his pulse was 150 bpm this was similar between 830 and 9 AM at which point his significant other decided to call EMS. I do not have the EMS run sheet but I am told that he was given 3 baby aspirin to chew up and was given a dose of Lopressor. Per ER notes he was given 5 mg of Lopressor IV which brought his heart rate from the 150s down to 120s however his blood pressure dropped into the 80s systolic and was given a 500 mL bolus of saline. On arrival he was complaining feeling weak but denied any chest pain or pressure. However he still had aching in his jaw. On arrival he was in atrial fibrillation with a rapid rate of 107 bpm his blood pressure was 118/81. Respiratory rate was 13. Oxygen saturation was 99% on room air. Work-up in ER included serial EKGs routine labs including proBNP and troponins. Initial ECG showed heart rate 115 bpm atrial fibrillation with diffuse ST depression across the precordial leads with a maximal 2 mm of downward sloping ST depression. Patient was treated by Dr. Callie Blanton, ED physician, with amiodarone 150 mg IV bolus. Patient subsequently converted to sinus rhythm. Subsequent ECG shows sinus bradycardia rate 53 bpm with APCs and resolution of his previously seen ST depression had resolved. Subsequent ECGs after arrival to the intensive care unit was obtained and again showed sinus rhythm at a rate of 63 bpm with no ischemic ST or T wave changes. Serial troponin levels have been obtained. Initially his first troponin level was obtained at 9:44 AM and the level was 74 ng/L which is slightly above the upper limit of normal of 60. Subsequent troponin level at 12:50 PM had risen to 1304 ng/L. And after arrival to the intensive care unit third set of troponins up to 10,079 ng/L at 4:[address] Callie Blanton spoke with [facility] as well as [facility] neither facility was able to accept NSTEMI's at this time. I requested Dr. Callie Blanton speak with cardiology directly at [facility] [place] Patient was accepted to the service of Dr. Toño Dukes at [facility] [place]. Since arrival to the ICU patient has had recurrent aching in his jaw that he rates about a 3-4 out of 10 compared to his initial discomfort which he rated about 7 out of 10. He has no chest pain or pressure and no dyspnea. Repeat ECG was performed and again shows no acute ST elevation. Rhythm remained sinus rhythm at a rate of 66 bpm with occasional PACs. I have ordered a nitroglycerin drip I spoke with [facility] [place] and spoke with lunchroom worker on-call Dr. Villanueva who reviewed the patient's ECGs and his echocardiogram. He indicated t hat the echocardiogram was read and showed no wall motion abnormalities with normal left ventricular ejection fraction of 56% and no valvulopathy. No pericardial effusion. At this point he recommends symptomatic control with nitroglycerin drip with titration up to 200 mcg/min as long as the systolic blood pressure remains above 100 mm. He indicated if nitroglycerin is not able to control his pain we could try low-dose of fentanyl. But if the patient continues having ischemic pain or has new EKG changes that we should call for discussion of transfer. Review of Systems Narrative: 11 system review of systems performed with the patient all of which were unremarkable except as outlined in his HPI PFSH All Active Problems (Updated 03/31/22 @ 19:46 by Sam Lozano MD) Discharge planning issues (Acute) Non-ST elevation DC (NSTEMI) (Acute) Atrial fibrillation with rapid ventricular response (Acute) Pre-syncope (Acute) Pulmonary hypertension (Acute) Insomnia (Acute) Dermatitis (Acute) Cervical disc disease (Acute) Elevated PSA (Acute) Urinary retention (Acute) Advanced care planning/counseling discussion (Acute) Shortness of breath (Chronic) Chronic obstructive pulmonary disease (Chronic) Depressive disorder (Acute) Gastroesophageal reflux disease (Acute) Hearing loss (Acute) History of tobacco use (Acute) Hyperlipidemia (Acute) Psoriasis (Acute) Sexual function problem (Acute) Medical History (Updated 03/31/22 @ 19:46 by Sam Lozano MD) BPH (benign prostatic hyperplasia) Pain, radicular, lumbar (02/18/15) MRI 02/18/15; 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 Surgical History (Updated 03/31/22 @ 19:34 by Sam Lozano MD) Appendectomy AGE 11 History of appendectomy History of orthopedic surgery LEFT COLLARBONE AGE 18 Status post tonsillectomy Status post vasectomy Tonsillectomy AGE 13 Vasectomy AGE 44? Family History Mother No problems noted. Father Personal history of malignant neoplasm esophageal Sister No problems noted. Sister Alzheimer disease Sister Personal history of malignant neoplasm Lung Sister No problems noted. Brother Personal history of malignant neoplasm Esophageal Grandfather No problems noted. Grandfather Ruptured appendix Grandmother No problems noted. Grandmother No problems noted. Social History Smoking/Tobacco Use Status: Former Tobacco Use Smoking risk assessment performed?: Yes Alcohol Intake: never Drug use: Never Substance use type: does not use Do you feel safe at home: Yes Do you feel safe in your relationship?: Yes Meds Allergies and Home Medications Allergies Allergy/AdvReac Type Severity Reaction Status Date / Time Influenza Virus Vaccines AdvReac Severe FLU LIKE Verified 03/31/22 09:43 SXS WHICH LAST FOR WEEKS Home Medications Medication Instructions Recorded Confirmed Type omeprazole magnesium 20 mg 20 mg PO DAILY@0730 06/04/13 03/31/22 History tablet,delayed release (Prilosec OTC) aspirin 81 mg tablet,delayed 81 mg PO DAILY #30 tab-caps 07/09/15 03/31/22 History release (Aspir-) Oxygen #1 ea 05/16/19 03/31/22 History tamsulosin 0.4 mg capsule 0.8 mg PO DAILY AM #180 tab-caps 12/21/21 03/31/22 Rx ascorbate calcium (vitamin C) 500 500 mg PO DAILY 01/13/22 03/31/22 History mg tablet cholecalciferol (vitamin D3) 50 50 mcg PO DAILY 01/13/22 03/31/22 History mcg (2,000 unit) tablet zinc 50 mg tablet 50 mg PO DAILY 01/13/22 03/31/22 History fluticasone fur. 100 mcg-umeclid 1 inh inhalation DAILY #60 ea 02/08/22 03/31/22 Rx 62.5 mcg-vilant 25 mcg inhalat.powder (Trelegy Ellipta) albuterol sulfate 90 mcg/actuation See Rx Instructions .Route 03/15/22 03/31/22 Rx aerosol inhaler .COMPLEX #8.5 grams Exam Narrative Exam Narrative: Mr. Trujillo is sitting up in his bed alert and oriented person place time circumstance wearing his oxygen at 3 L/min per nasal cannula. He appears to be in no acute respiratory distress not using accessory respiratory muscles. HEENT is unremarkable. Neck supple no JVD carotid pulses without bruits pulses regular Lungs are clear to auscultation anteriorly posterior he has some fine bibasilar rales no rhonchi or wheezes Heart is regular no appreciable murmur rub no palpable thrill or heave Abdomen is obese soft and nontender no bruits normal bowel sounds. Extremities without peripheral cyanosis or edema. He has normal range of motion and strength. Neurologic exam grossly intact no focal cranial nerve deficits no focal motor or sensory deficits. Normal facial mimetic muscle movement. Normal speech. Results Imaging Chest x-ray: image reviewed EKG: image reviewed Labs Result diagrams: 03/31/22 09:44 03/31/22 09:44 Labs: Laboratory Results - last 24 hr 03/31/22 03/31/22 03/31/22 09:44 09:44 09:44 WBC 6.81 RBC 3.89 L Hgb 11.3 L Hct 35.2 L MCV 91 MCH 29.0 MCHC 32.1 RDW 12.4 Plt Count 246 MPV 8.7 Immature Gran % 0.3 Neutrophils % 75.9 Lymphocytes % 16.3 Monocytes % 5.6 Eosinophils % 1.2 Basophils % 0.7 Nucleated RBC % 0.0 Absolute Neutrophils 5.17 Absolute Lymphocytes 1.11 L Absolute Monocytes 0.38 Absolute Eosinophils 0.08 Absolute Basophils 0.05 PT 11.0 INR 1.1 APTT 27.5 Sodium 137 Potassium 3.8 Chloride 103 Carbon Dioxide 27.6 Anion Gap 6.4 BUN 15 Creatinine 1.0 Estimated GFR/1.73 m2 >= 60.00 Glucose 110 H Calcium 8.7 Magnesium 1.8 Total Bilirubin 0.3 AST 10 L ALT 13 L Alkaline Phosphatase 70 Troponin I 74 H* NT-Pro-B Natriuret Pep 129 Total Protein 6.3 L Albumin 3.2 L TSH 1.22 COVID-19 Source SARS-CoV-2 (PCR) 03/31/22 03/31/22 03/31/22 11:00 12:50 16:31 WBC RBC Hgb Hct MCV MCH MCHC RDW Plt Count MPV Immature Gran % Neutrophils % Lymphocytes % Monocytes % Eosinophils % Basophils % Nucleated RBC % Absolute Neutrophils Absolute Lymphocytes Absolute Monocytes Absolute Eosinophils Absolute Basophils PT INR APTT Sodium Potassium Chloride Carbon Dioxide Anion Gap BUN Creatinine Estimated GFR/1.73 m2 Glucose Calcium Magnesium Total Bilirubin AST ALT Alkaline Phosphatase Troponin I 1304 H* 94006 H* NT-Pro-B Natriuret Pep Total Protein Albumin TSH COVID-19 Source Nasal/Nares SARS-CoV-2 (PCR) Negative Last Vital Signs Temp 36.8 C 03/31/22 09:35 Pulse 62 03/31/22 16:25 Resp 16 03/31/22 16:40 BP 103/57 L 03/31/22 16:25 Pulse Ox 97 03/31/22 16:40
[2022-03-31] MEDS: Normal Saline Flush 10 ML SYR IVP (18:59)
[2022-03-31] MEDS: nitroGLYcerin in D5W 50 MG/250 ML BTL IV (18:59)
[2022-03-31] MEDS: Famotidine 20 MG TAB 40 MG PO (19:19)
[2022-03-31 20:24] LABS: PTT Activated 54.6 sec (21.0-27.5)
[2022-03-31 20:29] LABS: Troponin I 23260 ng/L (<or=60)
--- NOTE | 2022-03-31 20:30 | RT.EKG_ITS ---
APPROVED REPORT Exam: Resting ECG Reason for Exam: elevated troponin Patient Location: I HR:69 bpm ECG Measurements Heart Rate 69 AXIS SC 155 P 75 QRSd 83 QRS 7 QT 414 T 63 QTc 444 Conclusion Sinus rhythm...normal P axis, V-rate 50- 99 Abnormal R-wave progression, early transition...QRS area>0 in V2
[2022-03-31] MEDS: Atorvastatin 40 MG TAB 80 MG PO (20:55)
[2022-04-01] VITALS (84 sets, daily range): BP systolic 80–110; BP diastolic 46–70; PULSE 61–98; RESP 12–27; TEMP 36.6–36.9; O2SAT 92–98
[2022-04-01 01:53] LABS: PTT Activated 50.2 sec (21.0-27.5)
[2022-04-01] MEDS: Calcium Carbonate *TUMS* 500 MG CHEW 1000 MG PO (02:04)
[2022-04-01 02:26] LABS: Troponin I 27397 ng/L (<or=60)
[2022-04-01 07:08] LABS: Troponin I 18958 ng/L (<or=60)
--- NOTE | 2022-04-01 08:15 | RT.EKG_ITS ---
APPROVED REPORT Exam: Resting ECG Patient Location: I HR:87 bpm ECG Measurements Heart Rate 87 AXIS TN 158 P 77 QRSd 89 QRS -12 QT 397 T 71 QTc 478 Conclusion Sinus rhythm...normal P axis, V-rate 50- 99 Atrial premature complex...SV complex w/ short R-R interval Abnormal R-wave progression, early transition...QRS area>[address] depr, consider ischemia, anterolateral lds...ST <-0.10mV, I aVL V2-V6 Borderline prolonged QT interval...QTc >475mS
--- NOTE | 2022-04-01 08:26 | CMPROGNOTE_ITS ---
- If Service Date Differs Date of service: 04/01/22 Time of Service: 08:26 Care Management Progress Note S/O: A: Gómez is an 81 year old man admitted on 03/31/22 with an NSTEMI and rapid afib P:Gómez is waiting to be transferred to [facility] [place]
[2022-04-01] MEDS: Mylanta Suspension 30 ML CUP PO (08:28)
--- NOTE | 2022-04-01 08:35 | W.PM.PROGNOT ---
Date of Service Date of service: 04/01/22 Time of Service: 08:35 Assessment and Plan Assessment and plan (1) Non-ST elevation GA (NSTEMI): Status: Acute Assessment and plan: NSTEMI with recurrent chest pain with intermittent improvement with nitroglycerin. Nevertheless the patient has had significant EKG changes including diffuse ST depression across the precordial leads. Troponins peaked at 27,000 now down to about 19,000. Patient is currently on Plavix, aspirin, heparin and now has been restarted nitroglycerin drip. Blood pressures have been low and he has been intolerant to beta-blockers secondary to hypotension. Patient needs urgent transfer to the cardiac Law Office Assistant for intervention. I reached out [place] [facility] [place] and they are paging out the cephalometric technician. We faxed his serial EKGs from overnight. Patient had brief runs of ventricular tachycardia with the longest being 8 beats at a rate of 160 bpm. He was asymptomatic from this and did not receive treatment. Critical care time spent interviewing and examining the patient, reviewing studies, discussing case with patient's nurse and consulting physicians was 60 minutes (2) Atrial fibrillation with rapid ventricular response: Status: Acute Assessment and plan: resolved after amiodarone bolus. Not currently on amiodarone drip. monitor for now. If recurrent then I would re-bolus and begin drip and consider BB. (3) Chronic obstructive pulmonary disease: Status: Chronic Assessment and plan: We do not have his Trelegy. I would ordere Symbicort and Spiriva for him; however, at present his COPD is stable and the more pressing problem is his NSTEMI. If he needs a bronchodilator then will use ipatroprium (4) Gastroesophageal reflux disease: Status: Acute Assessment and plan: will use pepcis rather than PPI as patient is now on plavix (5) Hyperlipidemia: Status: Acute Assessment and plan: he was not on a statin at home. I started him on atorvastatin 80 mg last night. (6) Discharge planning issues: Status: Acute Assessment and plan: patient has been accepted to service of Dr. Toño Dukes, [place]ology [place] [facility] [place] bed availability. I have called [facility] [place] and requested to talk w/ cardiology regarding his recurent chest pain and high troponins overnight and recurrent ST changes. Subjective Subjective Interval history since last seen: Overnight patient's troponin levels climbed to as high as 27,000. Serial EKGs were obtained overnight. He had further ST depression across the precordial leads. He had remained pain-free through the night and was off nitroglycerin drip through the night. This morning he states around 5 AM he started having some chest discomfort he states his discomfort was alleviated by 2 nitroglycerin. However around 8 AM he started having further epigastric discomfort with jaw aching they rated about a 7 out of 10. He was given 1 nitroglycerin which brought his discomfort down to a 3 but his systolic blood pressure dropped to 80. His blood pressure is recovered now to 94/67. His troponins this morning have trended down to 19,000. We will restart a nitroglycerin drip at a low rate. Repeat ECG has been obtained and the patient has diffuse [address] depression throughout the precordial leads most prominent in V3 through V6. And reaching out to [facility] [place] to see if we can get him transferred urgently. His chest pain is down to about a 1 on the nitroglycerin drip at 5 mcg/min Exam Narrative Exam Narrative: Gómez is lying in bed in supine position. He is not in any respiratory distress. Lungs are clear to auscultation Heart is regular with no appreciable murmur rub or gallop Abdomen is soft nontender nondistended Extremities without edema Objective Last Vital Signs Temp 36.6 C 04/01/22 04:00 Pulse 85 04/01/22 03:31 Resp 18 04/01/22 03:31 BP 95/58 L 04/01/22 03:31 Pulse Ox 94 04/01/22 03:31 Laboratory Results - last 24 hr 03/31/22 03/31/22 03/31/22 09:44 09:44 09:44 WBC 6.81 RBC 3.89 L Hgb 11.3 L Hct 35.2 L MCV 91 MCH 29.0 MCHC 32.1 RDW 12.4 Plt Count 246 MPV 8.7 Immature Gran % 0.3 Neutrophils % 75.9 Lymphocytes % 16.3 Monocytes % 5.6 Eosinophils % 1.2 Basophils % 0.7 Nucleated RBC % 0.0 Absolute Neutrophils 5.17 Absolute Lymphocytes 1.11 L Absolute Monocytes 0.38 Absolute Eosinophils 0.08 Absolute Basophils 0.05 PT 11.0 INR 1.1 APTT 27.5 Sodium 137 Potassium 3.8 Chloride 103 Carbon Dioxide 27.6 Anion Gap 6.4 BUN 15 Creatinine 1.0 Estimated GFR/1.73 m2 >= 60.00 Glucose 110 H Calcium 8.7 Magnesium 1.8 Total Bilirubin 0.3 AST 10 L ALT 13 L Alkaline Phosphatase 70 Troponin I 74 H* NT-Pro-B Natriuret Pep 129 Total Protein 6.3 L Albumin 3.2 L TSH 1.22 COVID-19 Source SARS-CoV-2 (PCR) 03/31/22 03/31/22 03/31/22 11:00 12:50 16:31 WBC RBC Hgb Hct MCV MCH MCHC RDW Plt Count MPV Immature Gran % Neutrophils % Lymphocytes % Monocytes % Eosinophils % Basophils % Nucleated RBC % Absolute Neutrophils Absolute Lymphocytes Absolute Monocytes Absolute Eosinophils Absolute Basophils PT INR APTT Sodium Potassium Chloride Carbon Dioxide Anion Gap BUN Creatinine Estimated GFR/1.73 m2 Glucose Calcium Magnesium Total Bilirubin AST ALT Alkaline Phosphatase Troponin I 1304 H* 74938 H* NT-Pro-B Natriuret Pep Total Protein Albumin TSH COVID-19 Source Nasal/Nares SARS-CoV-2 (PCR) Negative 03/31/22 03/31/22 04/01/22 19:57 19:57 01:34 WBC RBC Hgb Hct MCV MCH MCHC RDW Plt Count MPV Immature Gran % Neutrophils % Lymphocytes % Monocytes % Eosinophils % Basophils % Nucleated RBC % Absolute Neutrophils Absolute Lymphocytes Absolute Monocytes Absolute Eosinophils Absolute Basophils PT INR APTT 54.6 H Sodium Potassium Chloride Carbon Dioxide Anion Gap BUN Creatinine Estimated GFR/1.73 m2 Glucose Calcium Magnesium Total Bilirubin AST ALT Alkaline Phosphatase Troponin I 25[address] H* 36262 H* NT-Pro-B Natriuret Pep Total Protein Albumin TSH COVID-19 Source SARS-CoV-2 (PCR) 04/01/22 04/01/22 04/01/22 01:34 06:02 20:00 WBC RBC Hgb Hct MCV MCH MCHC RDW Plt Count MPV Immature Gran % Neutrophils % Lymphocytes % Monocytes % Eosinophils % Basophils % Nucleated RBC % Absolute Neutrophils Absolute Lymphocytes Absolute Monocytes Absolute Eosinophils Absolute Basophils PT INR APTT 50.2 H Cancelled Sodium Potassium Chloride Carbon Dioxide Anion Gap BUN Creatinine Estimated GFR/1.73 m2 Glucose Calcium Magnesium Total Bilirubin AST ALT Alkaline Phosphatase Troponin I 32237 H* NT-Pro-B Natriuret Pep Total Protein Albumin TSH COVID-19 Source SARS-CoV-2 (PCR)
[2022-04-01] MEDS: nitroGLYcerin in D5W 50 MG/250 ML BTL IV (08:38)
--- NOTE | 2022-04-01 08:45 | RT.EKG_ITS ---
APPROVED REPORT Exam: Resting ECG Reason for Exam: VA; monitor evolving ST-T changes Patient Location: I HR:72 bpm ECG Measurements Heart Rate 72 AXIS AK 160 P 77 QRSd 83 QRS -3 QT 428 T 57 QTc 469 Conclusion Sinus rhythm...normal P axis, V-rate 50- 99 Abnormal R-wave progression, early transition...QRS area>[address]pr, consider ischemia, anterolateral lds...ST <-0.10mV, I aVL V2-V6
[2022-04-01] MEDS: Zinc Sulfate 220 MG TAB PO (09:12)
[2022-04-01] MEDS: Aspirin E.C. 81 MG TABEC PO (09:12)
[2022-04-01] MEDS: Cholecalciferol (Vitamin D3) 1,000 UNIT TAB 2000 UNITS PO (09:13)
[2022-04-01] MEDS: Famotidine 20 MG TAB 40 MG PO (09:13)
[2022-04-01] MEDS: Clopidogrel 75 MG TAB PO (09:13)
[2022-04-01] MEDS: Normal Saline Flush 10 ML SYR IVP ×2 (09:24→14:12)
[2022-04-01] MEDS: Acetaminophen 325 MG TAB PO (09:24)
[2022-04-01 09:40] LABS: Troponin I 13944 ng/L (<or=60)
--- NOTE | 2022-04-01 11:28 | CMPROGNOTE_ITS ---
- If Service Date Differs Date of service: 04/01/22 Time of Service: 11:28 Care Management Progress Note S/O: Gómez is lying in bed when CM comes to meet with him. His electric motor tester assembler, Yanet, is present in the room but is on the phone. Gómez reports feeling fatigued and shares his belief he has not been transferred to [facility] yet because he needs to be stabilized first. CM lets him know that the plan is for [place] [facility] [place] a [place]. Nursing staff report Gómez is havi ng significant EKG changes with recurrent chest pain. He is currently on a low rate nitroglycerin drip at 5 mcg/min, per doctor's note. A: Gómez is an 81 year old man admitted on 03/31/22 with an NSTEMI and rapid afib. P: Gómez is waiting to be [place] [facility] [facility] [place] to request an urgent transfer. CM will continue to follow.
--- NOTE | 2022-04-01 11:28 | PDOC.CMPRO ---
- If Service Date Differs Date of service: 04/01/22 Time of Service: 11:28 Care Management Progress Note S/O: Gómez is lying in bed when CM comes to meet with him. His legal transcriber, Yanet, is present in the room but is on the phone. Gómez reports feeling fatigued and shares his belief he has not been transferred to [facility] yet because he needs to be stabilized first. CM lets him know that the plan is for him to be transferred to [facility] as soon as a bed opens up. Nursing staff report Gómez is having significant EKG changes with recurrent chest pain. He is currently on a low rate nitroglycerin drip at 5 mcg/min, per doctor's note. A: Gómez is an 81 year old man admitted on 03/31/22 with an NSTEMI and rapid afib. P: Gómez is waiting to be transferred to [facility]. has contacted [facility] cardiology to request an urgent transfer. CM will continue to follow.
--- NOTE | 2022-04-01 13:01 | W.PM.DS.N ---
Date of service: 04/01/22 DS: Diagnosis Discharge Diagnosis (1) Non-ST elevation SD (NSTEMI): Status: Acute (2) Atrial fibrillation with rapid ventricular response: Status: Resolved (3) Chronic obstructive pulmonary disease: Status: Chronic (4) Gastroesophageal reflux disease: Status: Chronic (5) Hyperlipidemia: Status: Chronic Discharge Plan Disposition Patient Disposition: [facility] Condition: Serious Discharge Details Reason For Visit: NSTEMI,Rapid AFIB Admit Date/Time: 03/31/22 14:04 Admit Provider: Sam Lozano Attending Provider: Sam Lozano Primary Care Provider: Mike Wing Hospital Course Hospital Course: 81-year-old male former smoker with history of COPD dependent on oxygen 3 L/min per nasal cannula presented emergency department with new onset atrial fibrillation with RVR was found to have an NSTEMI. Patient was treated with Lopressor by EMS and developed hypotension that responded to IV fluid bolus. Initial heart rate was 150 bpm. On arrival to the emergency department he remained in atrial fibrillation with heart rate in the 110s to 120 and patient was given amiodarone 150 mg IV bolus. This converted him to sinus rhythm. His initial EKG showed atrial fibrillation at a rate of 115 bpm with diffuse downward sloping ST depression across the precordial leads with a maximal depression of 2 mm. After resolution of his atrial fibrillation his ST depressions improved. Initial troponin level was 74 ng/L but repeat level 3 hours later millie to 1304 ng/L and after admission to the intensive care unit millie to 10,079. Patient was started on heparin drip. As his chest pain and jaw pain had resolved he was not started on nitroglycerin drip initially but then after admission to the intensive care unit he was complaining of jaw aching and repeat ECG was performed and there were no new ST changes. A nitroglycerin drip was ordered. [facility] transfer center has been contacted by [facility] ED personnel and the patient was tentatively accepted to the service of Dr. Toño Dukes pending bed availability. After arrival to the intensive care unit with the waxing and waning jaw pain and rising troponin levels [facility] transfer center was recontacted. And I spoke with the bookmobile driver on-call who indicated that we would try for symptomatic control for tonight but if he had new dynamic ST changes or his troponin continued to rise then we should call the back to discuss urgent transfer. During that evening and night of 03/31 to 04/01/2022 nitroglycerin drip was discontinued and he remained pain-free until around 5 AM. Patient had resolution of his jaw discomfort with 2 nitroglycerin tablets. However around 8 AM he had recurrent aching in his jaw and chest tightness. Repeat ECG was performed and he had significant [address] depression across the anterolateral precordial leads. Most prominent in V3 and V4 with her depression was almost 3 mm in depth. Nitroglycerin drip was restarted with resolution of his jaw pain. Repeat ECG was performed and showed improvement in his ST depression albeit there was still some residual 1-1.5 millimeter depression in the anterolateral leads. I recontacted [facility] transfer center and spoke with Jj Saxena from cardiology services who spoke with his bookmobile driver Dr. Grant. They indicated that they would try to make Mr. Trujillo's transfer high-priority however this was dependent on bed availability. Patient remains on aspirin and Plavix and heparin and nitroglycerin drip. He did have nonsustained ventricular tachycardia during the evening of 03/31 to 04/01/2022 in which she had an 8 beat run at a rate of 160 bpm for which she was asymptomatic. He has not been restarted on amiodarone but if he has further A. fib or ventricular tachycardia he will be rebolused with 300 mg of amiodarone and started on a amiodarone drip. Patient is hemodynamically stable at this point. Transfer is pending bed availability. It is anticipated patient will be transferred to [facility] on 04/01/2022. Patient is have been informed of the need for transfer they are agreeable to the same they understand the reason for transfer is for cardiac catheterization for probable PCI intervention of coronary artery disease. At the time of transfer his troponins were trending downward and his last level at 9 AM was 13,900. He had peaked at 27,400 at 1:30 AM on 04/01/2022. Echocardiogram imaging was obtained on the day of admission and was reported showing normal left ventricular size wall thickness and function with an EF of 56% and normal RV size and function. He has normal biatrial size and no valvulopathy and no pericardial effusion. Chest x-ray on admission showed some fibrotic lung changes of a chronic nature no acute pathology. Home Meds and New Rx's Prescriptions: No Action (DME) Oxygen Tank See Rx Instructions .ROUTE .MEDSUPPLY Qty: 1 Rx Instructions: As directed aspirin [Aspir-81] 81 MG tablet,delayed release (DR/EC) 81 mg PO DAILY Qty: 30 tamsulosin 0.4 mg capsule 0.8 mg PO DAILY AM Qty: 180 3RF ascorbate calcium (vitamin C) 500 mg tablet 500 mg PO DAILY zinc 50 mg tablet 50 mg PO DAILY cholecalciferol (vitamin D3) 50 mcg (2,000 unit) tablet 50 mcg PO DAILY Trelegy Ellipta 100-62.5-25 mcg blister with device 1 inh inhalation DAILY Qty: 60 5RF albuterol sulfate 90 mcg/actuation HFA aerosol inhaler See Rx Instructions .ROUTE .COMPLEX Qty: 8.5 0RF Dose Instruction: INHALE 2 PUFFS BY MOUTH EVERY 4 HOURS NEEDED FOR SHORTNESS OF BREATH OR WHEEZING Rx Instructions: INHALE 2 PUFFS BY MOUTH EVERY 4 HOURS NEEDED FOR SHORTNESS OF BREATH OR WHEEZING omeprazole magnesium [Prilosec OTC] 20 MG tablet,delayed release (DR/EC) 20 mg PO DAILY@0730 Discharge Instructions Instructions: Heart Attack (DC), Heart Healthy Diet (DC), Acute Coronary Syndrome (DC) Referrals: Toño Dukes [ NON-[facility] STAFF PHYSICIAN] - Activity:: bedrest Diet:: npo for cath Discharge Orders Discharge Orders: Discharge Order (Routine); Ordered 04/01/22 Ordered By: Sam Lozano DS: Summary Time Spent with Patient providing and/or coordinating discharge services: Greater than 30 minutes Specific discharge activities: Interview/exam of patient; review of discharge instructions, completion of prescriptions/discharge instructions; discussion w/ nursing and CM; documentation of hospital visit Status at Discharge Functional status at discharge: independent ambulation Overall status at discharge: patient is not back to baseline Mental Status: mental status grossly normal Speech and Movement: speech and movement normal Mood: congruent mood Affect: normal affect Exam Narrative Exam Narrative: Don is lying in bed in supine position. He is not in any respiratory distress. Lungs are clear to auscultation Heart is regular with no appreciable murmur rub or gallop Abdomen is soft nontender nondistended Extremities without edema Psych Mental Status: mental status grossly normal Speech and Movement: speech and movement normal Mood: congruent mood Affect: normal affect DS: Data Vitals/I&O Vitals and I&O: Vital Signs Temperature 36.8 C 04/01/22 08:53 Temperature Source Temporal Artery Scan 04/01/22 08:53 Pulse 70 04/01/22 12:30 Pulse 78 04/01/22 12:30 Respiratory Rate 19 04/01/22 12:30 Respiratory Effort 04/01/22 08:53 Respiratory Depth Normal 04/01/22 08:53 Respiratory Pattern Normal 04/01/22 08:53 Blood Pressure 96/57 L 04/01/22 12:30 Blood Pressure Mean 67 04/01/22 12:30 Blood Pressure Position Supine 04/01/22 08:53 Pulse Oximetry 95 04/01/22 12:30 Oxygen Delivery Method Nasal Cannula 04/01/22 08:53 Oxygen Flow Rate 3 04/01/22 08:53 Pain Level 4 04/01/22 09:24 Intake & Output 03/31/22 04/01/22 04/01/22 23:59 11:59 23:59 Intake Total 333.496 / 2333.496 130.925 / 130.925 Output Total 360 / 360 150 / 150 Balance -26.504 / 1973.496 -19.075 / -19.075 Weight 92.9 kg Intake: IV 153.496 / 2153.496 130.925 / 130.925 Oral 180 / 180 Output: Urine 360 / 360 150 / 150 Other: Urine Color Yellow Yellow Urine Appearance Clear Clear Urine Odor Strong Comment mixed with stool in commode Stool Size Small Stool Characteristics Soft Formed Voiding Methods Bedside Commode Bedside Commode Data Completed and Pending Labs on day of discharge: Labs from last 24 hours 04/01/22 04/01/22 04/01/22 20:00 12:13 09:12 APTT Cancelled Troponin I Pending 88996 H* 04/01/22 04/01/22 04/01/22 06:02 01:34 01:34 APTT 50.2 H Troponin I 29312 H* 23471 H* 03/31/22 03/31/22 03/31/22 19:57 19:57 16:31 APTT 54.6 H Troponin I 92200 H* 73230 H* 03/31/22 12:50 APTT Troponin I 1304 H* PFSH All Active Problems (Updated 04/01/22 @ 13:01 by Sam Lozano MD) Discharge planning issues (Acute) Non-ST elevation SD (NSTEMI) (Acute) Pre-syncope (Acute) Pulmonary hypertension (Acute) Insomnia (Acute) Dermatitis (Acute) Cervical disc disease (Acute) Elevated PSA (Acute) Urinary retention (Acute) Advanced care planning/counseling discussion (Acute) Shortness of breath (Chronic) Chronic obstructive pulmonary disease (Chronic) Depressive disorder (Acute) Gastroesophageal reflux disease (Chronic) Hearing loss (Acute) History of tobacco use (Acute) Hyperlipidemia (Chronic) Psoriasis (Acute) Sexual function problem (Acute) Medical History (Updated 04/01/22 @ 13:01 by Sam Lozano MD) BPH (benign prostatic hyperplasia) Pain, radicular, lumbar (02/18/15) MRI 02/18/15; 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 Surgical History (Updated 03/31/22 @ 19:34 by Sam Lozano MD) Appendectomy AGE 11 History of appendectomy History of orthopedic surgery LEFT COLLARBONE AGE 18 Status post tonsillectomy Status post vasectomy Tonsillectomy AGE 13 Vasectomy AGE 44? Family History Mother No problems noted. Father Personal history of malignant neoplasm esophageal Sister No problems noted. Sister Alzheimer disease Sister Personal history of malignant neoplasm Lung Sister No problems noted. Brother Personal history of malignant neoplasm Esophageal Grandfather No problems noted. Grandfather Ruptured appendix Grandmother No problems noted. Grandmother No problems noted. Social History Smoking/Tobacco Use Status: Former Tobacco Use Smoking risk assessment performed?: Yes Alcohol Intake: never Drug use: Never Substance use type: does not use Do you feel safe at home: Yes Do you feel safe in your relationship?: Yes
[2022-04-01 13:15] LABS: Troponin I 12884 ng/L (<or=60)
[2022-04-01] MEDS: LORazepam 20 MG/10 ML VIAL IVP (14:13)
--- NOTE | 2022-04-01 15:40 | CMDISCH_ITS ---
- If Service Date Differs Date of service: 04/01/22 Time of Service: 15:40 LACE Index Scoring Tool - Questions: Length of Stay (in days): 1 Acuity (Admit via E.D.?): Yes Comorbidities: Chronic Pulmonary Disease E.D. Visits: 1 - Answers: Total Score: 7 Risk of Readmission: Low Risk Care Management Discharge Reason for Hospitalization: NSTEMI, rapid afib. Discharge Plan: Satya is transferred to [facility] for cardiac catheterization. He is transported via EMS. - Disposition Transport via of: EMS
== END 2022-04-01 14:55 | disposition short-term general hospital (02) | DRG 281 ==
LOC: ER 14:27 → ICU 15:55
PROVIDERS: Student in an Organized Health Care Education/Training Program; Admitting Provider Internal Medicine; Emergency Provider Emergency Medicine; PCP Family Medicine; Visit Provider Internal Medicine
DX: I21.4 Non-ST elevation (NSTEMI) myocardial infarction (principal); I47.2 Ventricular tachycardia; I48.91 Unspecified atrial fibrillation; J44.9 Chronic obstructive pulmonary disease, unspecified; E78.5 Hyperlipidemia, unspecified; K21.9 Gastro-esophageal reflux disease without esophagitis; R55 Syncope and collapse; I27.20 Pulmonary hypertension, unspecified; G47.00 Insomnia, unspecified; M50.30 Other cervical disc degeneration, unspecified cervical region; R97.20 Elevated prostate specific antigen [PSA]; R60.0 Localized edema; R33.9 Retention of urine, unspecified; N40.0 Benign prostatic hyperplasia without lower urinary tract symptoms; F32.A Depression, unspecified; L40.9 Psoriasis, unspecified; Z87.891 Personal history of nicotine dependence; Z79.82 Long term (current) use of aspirin; Z99.81 Dependence on supplemental oxygen
CPT/HCPCS: 36415; 80053; 87635; 93005; 96361; 96365; 96366; 96375; 99285; 71045; 83735; 83880; 84443; 84484; 85025; 85610; 85730; 93010; 93306; 99239; 99291; J3490